=== PATIENT | female | born 1995 | race Caucasian/White ===

== ENCOUNTER 2019-02-17 10:57 | Inpatient (IN) ==
[2019-02-17] MEDS ORDERED: traZODone 50 MG TABLET PO PRN (12:24)
[2019-02-17] MEDS ORDERED: hydrOXYzine pamoate 25 MG CAPSULE PO PRN (12:24)
[2019-02-17] MEDS ORDERED: *HR* LORazepam 2 MG/ML VIAL IM PRN (12:48)
[2019-02-17] MEDS ORDERED: Ibuprofen 400 MG TABLET PO PRN (12:48)
[2019-02-17] MEDS ORDERED: *HR* LORazepam 1 MG TABLET PO PRN (12:48)
[2019-02-17] MEDS ORDERED: Haloperidol Lactate 5 MG/ML VIAL IM PRN (12:48)
[2019-02-17] MEDS ORDERED: MOM Conc 10 ML UD.LIQ PO PRN (12:48)
[2019-02-17] MEDS ORDERED: Acetaminophen 325 MG TABLET PO PRN (12:48)
[2019-02-17] MEDS ORDERED: Mag Hydrox/Al Hydrox/Simeth 30 ML UDC PO PRN (12:48)
--- NOTE | 2019-02-18 09:45 | Psychiatry History & Physical ---
Date of Encounter: 02/18/19 Time of Encounter: 08:50 History of Present Illness Patient Stated Chief Complaint: I overdosed Medicare Admission Attestation: For traditional Medicare patients the provided hospital inpatient services are reasonable and necessary and in the case of services not specified as inpatient-only under 42 CFR 419.22 (n), that they are appropriately provided as inpatient services in accordance 42 CFR 412.3. For Critical Access Hospital the patient may reasonably be expected to be discharged or transferred to a hospital within 96 hours after admission to the Critical Access Hospital. Admitted From: Direct Admit Plans for Post Hospital Care: Home History of Present Illness: Ms. Amaya is a 23 year old female who was just discharged from about 2 weeks ago. She overdosed on to trazodone and 6 Vistaril prior to coming to an outside ER for help. She reports that she has been compliant with her Risperdal, Vistaril, trazodone, and Cogentin however she said that she felt like they stopped working the last few days. She says that she has been having more auditory hallucinations command nature telling her to run away from home or take extra medications. She also reports visual hallucinations of little girl. She reports some sad mood, decreased interest, feelings of guilt and worthlessness, low energy. She denies manic symptoms current or past. Past Med Surg Social Fam HX - Past Medical History Medical history: non-contributory - Past Psychiatric History Past psychiatric history details: Past psychiatric history details: October of 2017 client was hospitalized for visual hallucinations. She states "seeing a old lay in room" and "bodies under the floor". Client was hospitalized at [facility] and was placed on Rispiradone 1 mg PO QHS daily, Zoloft 50 mg PO daily and Benztropine 0.5 mg PO QHS daily. She reports hallucinations went away shortly after starting medications. Client was readmitted in [place] for auditory and visual hallucinations. Client said she stopped taking her medications when she felt fine and the hallucinations came back. Client denies history of disorganized speech, ovidio, disinhibition, suicidal ideation/plan/intent or homicidal thought/plan/intent. She denies prior suicide attempts. She has previously been on Zoloft but did not find it to be particular helpful. She does not want tried again. Family psychiatric history: Yes Family Psychiatric History Details: Sister has been hospitalized for borderline personality disorder Family History of Suicide: None - Past Surgical History Surgical History: no surgical history - Social History Smoking Status: Never smoker Smokeless Tobacco Status: No Alcohol use: none Drug use: none Occupational status: unemployed Current living situation: Home, With Family Activity Level: Independent ambulation Recent Out of Country Travel Within the Last 8 Weeks: No Exposure or Possible Exposure to Illness During Travel: No Additional social history: She lives with her mother and sister. Her father is not involved in his leaving the country. She is not employed. - Family History Sister Adopted: [place]: Laura Age: 27 Family Member Ethnicity: Non- Living Status: Still Living Hx Family Cardiac Disorders: No Hx Family Respiratory Disorders: No Hx Family Cancer: No Hx Family GI Disorders: No Hx Family Endocrine Disorder: No Hx Family Neuromuscular Disorders: No Hx Family Neurologic Disorders: No Hx Family HEENT Disorders: No Hx Family Autoimmune Disorders: No Medications & Allergies Benztropine [Cogentin] 0.5 mg PO HS #15 tablet 02/03/19 [Rx] hydrOXYzine pamoate [Vistaril] 25 mg PO TID PRN #30 capsule 02/03/19 [Rx] risperiDONE [Risperidone] 1 mg PO BID #30 tablet 02/03/19 [Rx] traZODone [TraZODone] 50 mg PO HS PRN #15 tablet 02/03/19 [Rx] Allergy/AdvReac Type Severity Reaction Status Date / Time No Known Allergies Allergy Verified 02/17/19 16:46 Review of Systems Constitutional: Denies: fever, chills, weakness, weight change Eyes: Denies: eye pain, vision change Ears, Nose, Throat: Denies: ear pain, throat pain, dental pain, hearing loss, congestion Cardiovascular: Denies: chest pain, palpitations, dyspnea on exertion Respiratory: Denies: cough, dyspnea, wheezes Gastrointestinal: Denies: abdominal pain, nausea, vomiting, diarrhea, constipation Genitourinary female: Denies: urgency, dysuria, frequency, abnormal menses, dyspareunia Musculoskeletal: Denies: joint swelling, joint pain Integumentary: Denies: rash, lesions, pruritus Neurological: Denies: headache, weakness, numbness, memory loss Psychiatric: Reports: depression, suicidal ideation, auditory hallucinations, visual hallucinations, anhedonia. Denies: homicidal ideation Endocrine: Denies: fatigue, heat or cold intolerance Hematologic/Lymphatic: Denies: easy bruising, lymphadenopathy Allergic/Immunologic: Denies: urticaria, itchy eyes Exam - HEENT Head exam IM: Present: atraumatic Eye exam IM: Present: EOMI ENT exam IM: Present: mucous membranes moist - Neurological Neurological exam: Present: CN II-XII intact - Respiratory Respiratory exam IM: Absent: respiratory distress - GI/Abdominal GI/Abdominal exam IM: Present: no peritoneal signs - Extremities Extremities exam IM: Present: full ROM - Skin Skin exam IM: Absent: abrasion - Constitutional Vitals: Temp Pulse Resp BP Pulse Ox 98.5 F 89 16 120/75 96 02/18/19 09:00 02/18/19 09:00 02/18/19 09:00 02/18/19 09:00 02/18/19 09:00 General appearance: age & developmentally appropriate, obese - Musculoskeletal Gait: slow Station: stooped Strength & Tone: normal for patient - Psychiatric Patient Orientation: Yes Person, Yes Time, Yes Place, Yes Circumstance Level of alertness: Alert Behavior: guarded Psychomotor activity: Slowed Eye Contact: Minimal Contact Mood Description: Depressed, Anxious Patient description of mood: Worried Affect description: blunted Speech Volume: Soft/Quiet Speech pattern: slowed Language & Vocabulary: consistent with education Thought Process: [place] Thought Content: Yes Suicidal ideation, No Homicidal ideation, Yes Paranoid delusion Perceptual Disturbances: Yes Auditory hallucinations, Yes Visual hallucinations Attention Span Ability: Capable of Focused Attention Memory Description: Grossly Intact Patient Reliability: Reliable Historian Fund of knowledge: Yes abstraction ability, Yes average, Yes aware of current events Intelligence Estimate: Average Judgment: Poor Insight: None Assessment and Plan (1) Schizophrenia, history of multiple episodes, currently acute Current visit: No Status: Acute Plan: Admit inpatient for safety and stabilization, Close observation, Suicide Precautions per unit protocol, Encourage participation in unit milieu, Group Therapy, Monitor sleep, Monitor appetite Additional Plan: Discontinue risperidone as she feels it is not helpful with switch to Abilify start 5 mg by mouth every morning. Hold off on when necessary Vistaril and t razodone until these are out of her system due to her overdose. Reviewed Interval hx Review any current labs Pt had an opportunity to ask questions and discuss current treatment plan. Supportive therapy was provided Pt encouraged to consider group or individual therapy Pt was in agreement with treatment plan. Pt was educated on the risks benefits and side effects of current medications and alternatives as well as the risks and benefits of no medication. AIMS = 0 Risks, benefits, side effects, alternatives discussed w/pt: Yes Patient agreeable to treatment: Yes Plans for Post Hospital Care: Home
[2019-02-18] MEDS: ARIPiprazole 5 MG TABLET PO SCH (10:25)
--- NOTE | 2019-02-19 08:49 | Psychiatry Progress Note ---
Date of Encounter: 02/19/19 Time of Encounter: 10:00 Subjective Interval history: Patient reports she is tolerating the Abilify well. No side effects. She reports she continues to have auditory hallucinations and visual hallucinations with some suicidal thoughts to overdose. She is still hopeless and withdrawn. Review of Systems Psychiatric: Reports: depression, suicidal ideation, auditory hallucinations, visual hallucinations, anhedonia. Denies: homicidal ideation Results - Vital Signs Vital Signs: Temp Pulse Resp BP Pulse Ox 98.3 F 86 16 130/87 99 02/18/19 20:37 02/18/19 20:37 02/18/19 20:37 02/18/19 20:37 02/18/19 20:37 Assessment and Plan (1) Schizophrenia, history of multiple episodes, currently acute Current visit: No Status: Acute Plan: Continue hospitalization, Close observation, Suicide Precautions per unit protocol, Encourage participation in unit milieu, Group Therapy, Monitor sleep, Monitor appetite Additional Plan: Continue Abilify. Consider increase tomorrow. Encourage group therapy. Ther apist to work on discharge planning. Risks, benefits, side effects, alternatives discussed w/pt: Yes Patient agreeable to treatment: Yes Consult Discharge Plan - Plan Referrals: An Calderon CNP [Advanced Practice Nurse] - 02/23/19 10:45 am (You have an appointment scheduled with this provider on , February 23, 2019 at 10:45 AM. Please keep all of your healthcare providers informed of any changes in your medications, treatments or medical conditions. Please contact the office at the number above at least 24 hours in advance if you are unable to keep this appointment. ) Psychiatry Exam - Constitutional Vitals: Temp Pulse Resp BP Pulse Ox 98.3 F 86 16 130/87 99 02/18/19 20:37 02/18/19 20:37 02/18/19 20:37 02/18/19 20:37 02/18/19 20:37 General appearance: age & developmentally appropriate, well-groomed, well- nourished, obese - Musculoskeletal Gait: slow Station: slouched Strength & Tone: normal for patient - Psychiatric Patient Orientation: Yes Person, Yes Time, Yes Place, Yes Circumstance Level of alertness: Alert Behavior: anxious, guarded Psychomotor activity: Slowed Eye Contact: Minimal Contact Mood Description: Depressed Patient description of mood: sad Affect description: blunted Speech Volume: Soft/Quiet Speech pattern: normal tone, fluent, spontaneous, slowed Language & Vocabulary: consistent with education Thought Process: Linear, Goal Oriented Thought Content: Yes Suicidal ideation, No Homicidal ideation, No Overt delusions Perceptual Disturbances: Yes Auditory hallucinations, Yes Visual hallucinations Attention Span Ability: Capable of Focused Attention Memory Description: Grossly Intact Patient Reliability: Reliable Historian Fund of knowledge: Yes abstraction ability, Yes aware of current events Intelligence Estimate: Average Judgment: Limited Insight: Minimal
[2019-02-19] MEDS: ARIPiprazole 5 MG TABLET PO SCH (10:16)
[2019-02-20] MEDS: ARIPiprazole 5 MG TABLET PO SCH (08:32)
[2019-02-20 10:13] VITALS: BP 120/79
--- NOTE | 2019-02-20 11:06 | Discharge Summary ---
Date of Encounter: 02/20/19 Time of Encounter: 11:03 Diagnosis - Discharge Diagnosis (1) Schizophrenia, history of multiple episodes, currently acute Status: Acute (2) Borderline personality disorder in adult Status: Acute Medications - Discharge Medications Prescriptions: ARIPiprazole [Abilify] 5 mg PO QAM #30 tablet Benztropine [Cogentin] 0.5 mg PO HS #15 tablet 02/03/19 [Rx] ARIPiprazole [Abilify] 5 mg PO QAM #30 tablet 02/20/19 [Rx] Allergy/AdvReac Type Severity Reaction Status Date / Time No Known Allergies Allergy Verified 02/17/19 16:46 Provider Date of admission: 02/17/19 10:57 Discharging clinician: Marissa Javed Psychiatry Exam - Constitutional Vitals: Temp Pulse Resp BP Pulse Ox 97.8 F 103 20 120/79 98 02/20/19 09:00 02/20/19 09:00 02/20/19 09:00 02/20/19 09:00 02/20/19 09:00 General appearance: obese - Musculoskeletal Gait: normal Station: relaxed Strength & Tone: normal for patient - Psychiatric Patient Orientation: Yes Person, Yes Time, Yes Place Level of alertness: Alert Behavior: calm, cooperative Psychomotor activity: Normal Eye Contact: Maintains Eye Contact Mood Description: Euthymic/stable Affect description: congruent with mood, full range Speech Volume: Normal Speech pattern: normal rate, normal rhythm, normal tone, fluent, spontaneous Language & Vocabulary: consistent with education Thought Process: Linear, Goal Oriented Thought Content: No Suicidal ideation, No Homicidal ideation, No Overt delusions Perceptual Disturbances: No Auditory hallucinations, No Visual hallucinations Attention Span Ability: Capable of Focused Attention Memory Description: Grossly Intact Patient Reliability: Reliable Historian Fund of knowledge: Yes abstraction ability, Yes aware of current events Intelligence Estimate: Below Average Judgment: Limited Insight: Partial Hospital Course Hospital course: Ms. Amaya is a 23 year old female who was admitted as a 30 day readmit secondary to SI/AH/VH. Similar presentation to the first time. Historical diagnosis of Schizophrenia although seems more BIF and Borderline Personality Disorder. Was initially discharged on Risperdal but this admission Risperdal was switched to Abilify with good clinical effect. Today client states she is feeling much better. Denying SI, intent, or plan. Denying HI/AH/VH. Was never observed to be psychotic/responding to internal stimuli on the unit. Lives with mother and sister whom client states are supportive. Already linked with outpatient services. Client has been eating and sleeping well. According to staff she is "very happy this morning." Wants to go home. Total time spent with client greater than 30 minutes. Patient was educated of her diagnosis and the risks, benefits, and side effects of this treatment and alternative treatment options and was monitored for responsiveness and side effects. Mood, anxiety, sleep, appetite, and interest improved, as did future orientation. Self-harm thoughts subsided, thinking cleared, psychosis resolved, and mood stabilized. Patient was able to attend both individual and group therapy sessions as well as meeting with the psychiatrist daily and urged to discuss any medication or treatment issues or other concerns. The patient was educated primarily by verbal means about their diagnosis and manifestations in their life. The option for treatment including group and individual therapy programming was offered to the patient in the use of medications with all their potential risks, benefits, and side effects were discussed with the patient at length. The patient was given the opportunity to ask questions and was noted to participate in the treatment in the planning process. The patient felt ready and eager to be discharged from the inpatient psychiatric unit to continue on with treatment as an outpatient. The patient agreed that she is safe for this disposition. The patient was considered to be able to participate in informed consent and decision making with respect to medical, legal, and financial issues of the time of discharge. At the time of discharge the patient adamantly denied any concerns for lethality including suicidal or homicidal thoughts ideations or plans and was future oriented toward ongoing mental health care, medical follow-up and sobriety. - Time Spent with Patient Total time spent providing and/or coordinating discharge services: Greater than 30 minutes Assessment and Plan - Patient/Caregiver Discharge Instructions Activity: resume usual activities as tolerated Diet: low fat, low cholesterol - Follow up Plan Follow up with: An Calderon CNP [Advanced Practice Nurse] - 02/23/19 10:45 am (You have an appointment scheduled with this provider on , February 23, 2019 at 10:45 AM. Please keep all of your healthcare providers informed of any changes in your medications, treatments or medical conditions. Please contact the office at the number above at least 24 hours in advance if you are unable to keep this appointment. ) Functional capacity at discharge: independent ambulation Overall status at discharge: Stable Disposition: Home, Self-Care Quality - Multiple Antipsychotics Patient discharged on 2 or more antipsychotic medications: No Procedures - Procedures Procedures: Medication Management, Crisis Stabilization, Supportive Therapy, Group Therapy
== END 2019-02-20 16:26 | disposition home or self-care (01) | DRG 751 ==
LOC: 1ANU 10:57
PROVIDERS: ADMIT Psychiatry & Neurology Psychiatry; ATTEND Psychiatry & Neurology Psychiatry